=== PATIENT | female | born 2000 | race Caucasian/White ===

== ENCOUNTER 2022-03-30 15:43 | Outpatient (CLI) | payer OTHER, SELFPAY ==
--- NOTE | 2022-03-30 16:00 | CRLHL7_ITS ---
For Patients: As a result of the Century Cures Act, medical imaging exams and procedure reports are released immediately into your electronic medical record. You may view this report before your referring provider. If you have questions, please contact your health care provider. INDICATION: intermenstrual bleeding COMPARISON: none TECHNIQUE: 2D tavares scale and color Doppler images were acquired of the pelvis using a transabdominal and transvaginal approach. FINDINGS: Sonographic images demonstrate a normal size and smooth outer contour of the uterus. Uterus measures 6.7 cm in length by 2.2 cm in AP diameter by 3.1 cm in transverse dimension. The myometrium has a normal uniform echotexture. The endometrial lining appears normal and measures 5 mm in composite thickness. The right ovary measures 2.9 x 1.6 x 1.8 cm in size and the left ovary measures 2.9 x 1.5 x 1.6 cm. Small follicles bilaterally measuring up to 10 millimeters on the left. The ovaries demonstrate normal arterial and venous blood flow on color Doppler analysis. There are no suspicious fluid collections within the cul-de-sac. Trace physiologic free fluid. IMPRESSION: Endometrial thickness 5 millimeters. No evidence of endometrial polyp or uterine fibroid. Dictated by Rafa Lama MD @ 03/31/2022 9:23:34 AM (Electronically Signed)
[2022-03-30 17:06] LABS: INR 1.11 (0.91-1.10)
[2022-03-30 17:07] LABS: Partial Thromboplastin Time* 38 Seconds (23-33)
== END 2022-03-30 15:44 | disposition home or self-care (01) ==
LOC: US 15:46
PROVIDERS: PCP Physician Assistant Medical; Visit Provider Physician Assistant Medical
DX: N92.1 Excessive and frequent menstruation with irregular cycle (principal); R93.89 Abnormal findings on diagnostic imaging of other specified body structures
CPT/HCPCS: 36415; 76830; 76856; 85610; 85730

== ENCOUNTER 2022-05-25 11:26 | Outpatient (CLI) | payer OTHER, SELFPAY ==
[2022-05-25 12:08] LABS: INR 1.08 (0.91-1.10); Prothrombin Time 14.6 Seconds
[2022-05-25 12:09] LABS: Partial Thromboplastin Time* 34 Seconds (23-33)
== END 2022-05-25 11:27 | disposition home or self-care (01) ==
PROVIDERS: PCP Physician Assistant Medical; Visit Provider Physician Assistant Medical
DX: N92.1 Excessive and frequent menstruation with irregular cycle (principal)
CPT/HCPCS: 36415; 85610; 85730

== ENCOUNTER 2022-06-14 11:27 | Outpatient (CLI) | payer OTHER, SELFPAY ==
[2022-06-14 15:23] LABS: Chlamydia DNA Amplified* NOT DETECTED (No Detected); GC DNA Amplified* NOT DETECTED (No Detected)
== END 2022-06-14 11:28 | disposition home or self-care (01) ==
PROVIDERS: PCP Physician Assistant Medical; Visit Provider Registered Nurse
DX: N93.9 Abnormal uterine and vaginal bleeding, unspecified (principal)
CPT/HCPCS: 0353U

== ENCOUNTER 2022-08-11 09:00 | Outpatient (RCR) | payer OTHER, SELFPAY | END 2022-11-03 10:00 | disposition home or self-care (01) | PROVIDERS: PCP Physician Assistant Medical; Visit Provider Physician Assistant Medical | DX: N94.10 Unspecified dyspareunia (principal); Z51.89 Encounter for other specified aftercare | CPT/HCPCS: 97110; 97112; 97140; 97162; 97535 ==